=== PATIENT | male | born 1980 | race Caucasian/White ===

== ENCOUNTER 2021-02-21 22:37 | Emergency (ER) | payer OTHER, SELFPAY ==
--- NOTE | ~2021-02-21 | XR_ITS ---
EXAMINATION: XR ankle RT min 3V DATE: 02/22/2021 02:13 INDICATION: Right ankle pain and swelling. TECHNIQUE: 4 views of right ankle were obtained. COMPARISON: None. FINDINGS: Bone alignment is normal. No acute fracture. There is an old healed fracture of distal fibu lar diaphysis. There is mild osteoarthritis of talonavicular joint. There is an enthesophyte at poste rior aspect of calcaneal tuberosity. There is ankle soft tissue swelling. IMPRESSION: 1. No acute fracture. Reviewed, dictated and finalized at location A. IMPRESSION: 1. No acute fracture.
--- NOTE | ~2021-02-21 | XR_ITS ---
EXAMINATION: XR foot RT min 3V DATE: 02/21/2021 23:00 INDICATION: Right foot pain. Injury. TECHNIQUE: 4 views of right foot were obtained. COMPARISON: Right ankle radiographs 09/05/2009 FINDINGS: Bone alignment is normal. No acute fracture. There is an old healed fracture of distal fibu lar diaphysis. There is mild osteoarthritis of first metatarsophalangeal joint and talonavicular join t. There is an enthesophyte at posterior aspect of calcaneal tuberosity. IMPRESSION: 1. Mild polyarticular osteoarthritis. Reviewed, dictated and finalized at location A.
[2021-02-21 22:52] VITALS: BP 141/73; PULSE 74; RESP 14; TEMP 36.9; O2SAT 97
[2021-02-22 01:49] VITALS: BP 123/69; PULSE 77; RESP 18; TEMP 36.3; O2SAT 97
--- NOTE | 2021-02-22 02:11 | ED.LOWEXIN ---
HPI - Extremity Injury (Lower) General Chief Complaint: Extremity Injury, Lower Stated Complaint: right foot pain, fall Time Seen by Provider: 02/22/21 01:08 Source: RN notes reviewed History of Present Illness HPI Narrative: Patient presents emergency room from home for right foot pain. Patient states he was walking down steps when he tripped and fell down several steps states did not fall to the ground but rolled his right foot she since that time is had pain over the top of the right foot he denies any ankle or knee injury he states he did take Aleve at home for the pain denies any numbness or tingling Related Data Allergies Allergy/AdvReac Type Severity Reaction Status Date / Time No Known Allergies Allergy Verified 02/22/21 01:51 Review of Systems Review of Systems: Narrative: Gen.: Denies fevers or chills Musculoskeletal: See HPI Neuro: Denies numbness, tingling, weakness Skin: Denies rash Endo: Denies DM PMFSH Past Medical History Medical History (Updated 02/22/21 @ 02:14 by Kadeem Padilla DO) Patient denies significant medical history Social History Social History (Updated 02/22/21 @ 02:12 by Kadeem Padilla DO) Smoking status: Never smoker Gender identity (if verbalized by the patient): Male Exam Narrative: Exam Narrative: APPEARANCE: No acute distress, nontoxic, resting in bed Eyes: EOMI HEENT: Normocephalic, atraumatic, RESPIRATORY: No respiratory distress MUSCULOSKELETAl: Tender palpation with point tenderness over the proximal lateral dorsal right foot no tenderness of the remainder the foot no tenderness of the medial or lateral malleolus dorsalis pedis pulse 2+ neurovascular intact NEURO: Awake and alert. Following commands, speech normal, no focal deficits SKIN:: Warm, dry. Normal Color no rash or lesions Course Course Emergency Course: Discussed with patient results of workup and diagnosis. Discussed need for follow-up with primary care, proper use of medication, and reasons to return to the emergency department. Patient understands and agrees to current treatment plan Vital Signs Vital signs: Vital Signs Temperature 98.5 F 02/21/21 22:52 Pulse Rate 74 02/21/21 22:52 Respiratory Rate 14 02/21/21 22:52 Blood Pressure 141/73 H 02/21/21 22:52 Pulse Oximetry 97 02/21/21 22:52 Temperature 97.4 F L 02/22/21 01:49 Pulse Rate 77 02/22/21 01:49 Respiratory Rate 18 02/22/21 01:49 Blood Pressure 123/69 02/22/21 01:49 Pulse Oximetry 97 02/22/21 01:49 MDM - Extremity Injury (Lower) Imaging Data Attestation: I personally reviewed and interpreted this imaging study as follows: My impression: Right foot x-ray reviewed by myself shows no acute fracture Right ankle x-ray reviewed by myself shows no acute fracture Discharge Plan Discharge Clinical Impression: Right foot sprain Patient Disposition: Home, Self-Care Condition: Stable Instructions: Antibiotic Form, Foot Sprain (ED), R.I.C.E. Treatment (ED) Additional Instructions: Return for increasing pain numbness or tingling in extremities or any other symptoms of concern Prescriptions: New ibuprofen [IBU] 600 mg tablet 600 mg PO Q6H PRN (Reason: pain) Qty: 20 RF: 0 Follow-up/Referrals: Celso Sinha MD [Physician] - (Follow-up in 1-2 days for further on-call physician treatment and evaluation) PHYSICIAN,[employer]STRU[employer] WORKER [Primary Care Provider] - Stand Alone Forms: Work/School Release IP Time of Disposition: 02:14
== END 2021-02-22 02:37 | disposition home or self-care (01) ==
PROVIDERS: Emergency Provider Emergency Medicine
DX: S93.601A Unspecified sprain of right foot, initial encounter (principal); W10.9XXA Fall (on) (from) unspecified stairs and steps, initial encounter
CPT/HCPCS: 73610; 73630; 99283

== ENCOUNTER 2022-11-09 16:14 | Emergency (ER) | payer OTHER, SELFPAY ==
[2022-11-09 16:21] VITALS: BP 149/80; PULSE 82; RESP 20; TEMP 36.3; O2SAT 97
--- NOTE | 2022-11-09 17:26 | ED.URI ---
HPI - URI/Sore Throat General Chief Complaint: Upper Respiratory Infection Stated Complaint: Sore Throat Time Seen by Provider: 11/09/22 17:26 Source: patient, RN notes reviewed and old records reviewed Mode of arrival: ambulatory Limitations: no limitations History of Present Illness HPI Narrative: 42-year-old male presents to [facility] with complaints of sore throat, headache, and fever since Monday, Patient reports that it is painful to swallow and he hasn't been able to eat or sleep. patient reports that he has been taking DayQuil and NyQuil for his symptoms. Patient reports that he has not had cough or any shortness of breath. MD elicited complaint: sore throat Onset (ago): day(s) (5) Pain scale (0-10): 5 Able to tolerate fluids by mouth: Yes Treatments prior to arrival: other (DayQuil and NyQuil) Related Data Allergies Allergy/AdvReac Type Severity Reaction Status Date / Time No Known Allergies Allergy Verified 11/09/22 16:57 Review of Systems Review of Systems: CONSTITUTIONAL: Reports malaise, chills, sweats, or fever. EYES: Denies visual changes, redness, or discharge. ENT: Reports rhinorrhea, congestion, sinus pain,no otalgia positive sore throat. CARDIOVASCULAR: Denies chest pain, palpitations, or edema. RESPIRATORY: Reports cough.? Denies dyspnea. GASTROINTESTINAL: Denies abdominal pain, nausea, vomiting, diarrhea SKIN: Denies rash or itching. MUSCULOSKELETAL: Denies myalgia. NEUROLOGIC:Reports headache. All systems reviewed & are unremarkable except as noted in HPI and below PMFSH Past Medical History Medical History (Updated 11/10/22 @ 22:08 by Therese Lee NP) COVID-19 Surgical History Surgical History (Updated 11/10/22 @ 22:11 by Therese Lee NP) H/O inguinal hernia repair History of appendectomy Social History Social History (Updated 02/22/21 @ 02:12 by Kadeem Padilla DO) Smoking status: Never smoker Gender identity (if verbalized by the patient): Male Comments At time of signature, agree with nursing past medical, surgical, social and family history. There is no relevant family history pertinent to the presenting complaint Exam Narrative: GENERAL: Well-appearing, well-nourished, and in no acute distress. HEAD: Normocephalic EYES: PERRLA, conjunctivae clear ENT: Nares clear, turbinates edematous and erythematous, clear discharge, sinus pain,headache. Mucous membranes moist. TM pearly burgos with dull light reflex bilaterally; no tragal tenderness. Oropharynx erythematous without lesions. Tonsils red enlarged and without exudate, no drooling, no hoarseness, no trismus, uvula midline.painful swallowing NECK: Supple.positive lymphadenopathy CHEST: Clear to auscultation, breath sounds equal. No wheezing, rhonchi, rales, or stridor. No respiratory distress, speaks in full sentences.SAO2 97% on room air HEART: Regular rate and rhythm. No murmur heard SKIN: Warm, dry, no rash. NEURO: Alert and oriented x3. PSYCH: Normal mood and affect Course Course Emergency Course: Patient is aware of diagnosis, understands and agrees to treatment plan.? Anticipatory guidance given.? Patient agrees to follow-up as directed and is aware of reasons to seek care at the emergency department. Portions of this record may have been created with voice recognition software Level of Care: Express Care Visit Vital Signs Vital signs: Vital Signs Temperature 36.3 C L 11/09/22 16:21 Pulse Rate 82 11/09/22 16:21 Respiratory Rate 20 11/09/22 16:21 Blood Pressure 149/80 H 11/09/22 16:21 Pulse Oximetry 97 11/09/22 16:21 Oxygen Delivery Room Air 11/09/22 16:21 Temperature 36.3 C L 11/09/22 16:21 Pulse Rate 82 11/09/22 16:21 Respiratory Rate 20 11/09/22 16:21 Blood Pressure 149/80 H 11/09/22 16:21 Pulse Oximetry 97 11/09/22 16:21 Oxygen Delivery Room Air 11/09/22 16:21 Reviewed MDM - URI/Sore Throat MDM Narrative Medical deci
== END 2022-11-09 17:40 | disposition home or self-care (01) ==
PROVIDERS: Emergency Provider Registered Nurse
DX: J02.0 Streptococcal pharyngitis (principal); Z86.16 Personal history of COVID-19
CPT/HCPCS: 87880; 99213; G0463